=== PATIENT | female | born 1980 | race African-American/Black ===

== ENCOUNTER 2021-12-28 11:50 | Emergency (ER) | payer MEDICARE, BC ==
--- NOTE | 2021-12-28 13:07 | ED ---
Female Urogenital HPI - General Chief complaint: Vaginal Bleeding Stated complaint: Poss miscarriage Time Seen by Provider: 12/28/21 13:00 Source: patient Mode of arrival: wheelchair Limitations: no limitations - History of Present Illness Initial comments: Patient is a 41-year-old A2 female with a chief complaint of pelvic pain and vaginal bleeding 3 days. Patient reports the pelvic pain is bilateral and shoots down through her thighs. Patient also reports vaginal bleeding that began on 12/26/21. Patient reports she has went through a total of 28 pads since the vaginal bleeding began. She did notice some blood clots yesterday but vaginal bleeding has been very light today, light pink in color. Patient reports her last menstrual period was on 11/01/21. She does note that she could be having a miscarriage as she has a history of 2 miscarriages previously. Patient denies fever, chills, generalized weakness, headache, shortness of breath, chest pain, palpitations, dizziness, abdominal pain, nausea, vomiting, diarrhea, melanic stools, hematochezia, and dysuria. - Related Data Home Medications Medication Instructions Recorded Confirmed Acetaminophen Tab [Tylenol] 650 mg PO Q4H PRN 12/28/21 12/28/21 Ibuprofen [Motrin Ib] 400 mg PO Q8H PRN 12/28/21 12/28/21 Previous Rx's Medication Instructions Recorded HYDROcodone/APAP 10-325MG [[place] 1 tab PO Q6H PRN 3 Days #12 tab 12/28/21 10-325] Allergies Allergy/AdvReac Type Severity Reaction Status Date / Time latex Allergy Rash/Hives Verified 12/28/21 13:54 Review of Systems ROS Statement: Those systems with pertinent positive or pertinent negative responses have been documented in the HPI. ROS Other: All systems not noted in ROS Statement are negative. Past Medical History Past Medical History: Hypertension Additional Past Medical History / Comment(s): anemia History of Any Multi-Drug Resistant Organisms: None Reported Past Surgical History: Section Past Psychological History: No Psychological Hx Reported Smoking Status: Vaper Past Alcohol Use History: None Reported Past Drug Use History: None Reported General Exam Limitations: no limitations General appearance: alert, in no apparent distress Head exam: Present: atraumatic, normocephalic, normal inspection Eye exam: Present: normal appearance, PERRL, EOMI. Absent: scleral icterus, conjunctival injection, periorbital swelling Neck exam: Present: normal inspection. Absent: tenderness, meningismus, lymphadenopathy Respiratory exam: Present: normal lung sounds bilaterally. Absent: respiratory distress, wheezes, rales, rhonchi, stridor Cardiovascular Exam: Present: regular rate, normal rhythm, normal heart sounds. Absent: systolic murmur, diastolic murmur, rubs, gallop, clicks GI/Abdominal exam: Present: soft, tenderness (pelvic region bilaterally ). Absent: distended, guarding, rebound, rigid Speculum exam: Present: other (Cervical os was visualized with very minimal bleeding) Back exam: Present: normal inspection, full ROM. Absent: tenderness, CVA tenderness (R), CVA tenderness (L) Neurological exam: Present: alert, oriented X3, CN II-XII intact Psychiatric exam: Present: normal affect, normal mood Skin exam: Present: warm, dry, intact, normal color. Absent: rash Course Vital Signs 12/28/21 12/28/21 12/28/21 12:39 18:08 20:39 Temperature 99.4 F 98.3 F Pulse Rate 97 93 83 Respiratory 18 18 15 Rate Blood Pressure 156/91 144/86 146/92 O2 Sat by Pulse 100 98 99 Oximetry Medical Decision Making - Medical Decision Making She is a 41-year-old female who presents with severe pelvic pain and vaginal bleeding 3 days. Thorough history and examination were performed. Urine hCG is negative. Urinalysis reveals 182 RBC. Hemoglobin is 7.4. On speculum exam there was very mild vaginal bleeding from the cervical os. Pelvic ultrasound reveals no evidence for ovarian torsion, or couple small follicles are seen within the ovaries, normal endometrial stripe, no pelvic free fluid. CT of the abdomen and pelvis without contrast reveals no evidence of acute intra-abdominal process. Repeat hemoglobin is 7.2 Patient given Dilaudid for pain. Patient reports that the Dilaudid improved the pain moderately. Case discussed with Dr. Ramsay who is comfortable with outpatient evaluation and management of the pelvic pain and vaginal bleeding. Case discussed with patient. Patient reports that her hemoglobin is usually around 8. Patient will be discharged with short course of [place], strict return parameters, referral to Dr. Ramsay. He verbalizes understanding and is agreeable to plan. Return parameters discussed. Dr. Magallanes is my attending. - Lab Data Result diagrams: 12/28/21 18:07 12/28/21 13:42 Lab Results 12/28/21 12/28/21 12/28/21 Range/Units 13:37 13:42 13:42 WBC 8.6 (3.8-10.6) k/uL RBC 4.66 (4.30-5.90) m/uL Hgb 7.4 L (13.0-17.5) gm/dL Hct 28.6 L (39.0-53.0) % MCV 61.3 L (80.0-100.0) fL MCH 15.8 L (25.0-35.0) pg MCHC 25.8 L (31.0-37.0) g/dL RDW 22.2 H (11.5-15.5) % Plt Count 609 H (150-450) k/uL MPV 8.5 Neutrophils % 59 % Lymphocytes % 31 % Monocytes % 5 % Eosinophils % 3 % Basophils % 1 % Neutrophils # 5.0 (1.3-7.7) k/uL Lymphocytes # 2.7 (1.0-4.8) k/uL Monocytes # 0.5 (0-1.0) k/uL Eosinophils # 0.2 (0-0.7) k/uL Basophils # 0.1 (0-0.2) k/uL Differential Comment Manual Slide Review Performed Hypochromasia Marked Poikilocytosis Slight Anisocytosis Moderate Microcytosis Marked PT (9.0-12.0) sec INR (<1.2) APTT (22.0-30.0) sec Sodium 137 (137-145) mmol/L Potassium 4.5 (3.5-5.1) mmol/L Chloride 107 (98-107) mmol/L Carbon Dioxide 24 (22-30) mmol/L Anion Gap 6 mmol/L BUN 11 (9-20) mg/dL Creatinine 0.83 (0.66-1.25) mg/dL Est GFR (CKD-EPI)AfAm >90 (>60 ml/min/1.73 sqM) Est GFR (CKD-EPI)NonAf >90 (>60 ml/min/1.73 sqM) Glucose 94 (74-99) mg/dL Calcium 10.8 H (8.4-10.2) mg/dL Total Bilirubin 0.4 (0.2-1.3) mg/dL AST 22 (17-59) U/L ALT 14 (4-49) U/L Alkaline Phosphatase 85 (38-126) U/L Total Protein 7.7 (6.3-8.2) g/dL Albumin 4.3 (3.5-5.0) g/dL Urine Color Urine Appearance (Clear) Urine pH (5.0-8.0) Ur Specific [place] (1.001-1.035) Urine Protein (Negative) Urine Glucose (UA) (Negative) Urine Ketones (Negative) Urine Blood (Negative) Urine Nitrite (Negative) Urine Bilirubin (Negative) Urine Urobilinogen (<2.0) mg/dL Ur Leukocyte Esterase (Negative) Urine RBC (0-5) /hpf Urine WBC (0-5) /hpf Urine WBC Clumps (None) /hpf Urine HCG, Qual Blood Type O Positive Blood Type Recheck No Previous Record Bld Type Recheck Status [facility] ONLY 12/28/21 12/28/21 12/28/21 Range/Units 13:42 13:42 13:42 WBC (3.8-10.6) k/uL RBC (4.30-5.90) m/uL Hgb (13.0-17.5) gm/dL Hct (39.0-53.0) % MCV (80.0-100.0) fL MCH (25.0-35.0) pg MCHC (31.0-37.0) g/dL RDW (11.5-15.5) % Plt Count (150-450) k/uL MPV Neutrophils % % Lymphocytes % % Monocytes % % Eosinophils % % Basophils % % Neutrophils # (1.3-7.7) k/uL Lymphocytes # (1.0-4.8) k/uL Monocytes # (0-1.0) k/uL Eosinophils # (0-0.7) k/uL Basophils # (0-0.2) k/uL Differential Comment Manual Slide Review Hypochromasia Poikilocytosis Anisocytosis Microcytosis PT 9.8 (9.0-12.0) sec INR 0.9 (<1.2) APTT 21.1 L (22.0-30.0) sec Sodium (137-145) mmol/L Potassium (3.5-5.1) mmol/L Chloride (98-107) mmol/L Carbon Dioxide (22-30) mmol/L Anion Gap mmol/L BUN (9-20) mg/dL Creatinine (0.66-1.25) mg/dL Est GFR (CKD-EPI)AfAm (>60 ml/min/1.73 sqM) Est GFR (CKD-EPI)NonAf (>60 ml/min/1.73 sqM) Glucose (74-99) mg/dL Calcium (8.4-10.2) mg/dL Total Bilirubin (0.2-1.3) mg/dL AST (17-59) U/L ALT (4-49) U/L Alkaline Phosphatase (38-126) U/L Total Protein (6.3-8.2) g/dL Albumin (3.5-5.0) g/dL Urine Color Red Urine Appearance Turbid (Clear) Urine pH 7.5 (5.0-8.0) Ur Specific [place] >1.050 H (1.001-1.035) Urine Protein 2+ H (Negative) Urine Glucose (UA) Negative (Negative) Urine Ketones Negative (Negative) Urine Blood Large H (Negative) Urine Nitrite Negative (Negative) Urine Bilirubin Negative (Negative) Urine Urobilinogen <2.0 (<2.0) mg/dL Ur Leukocyte Esterase Small H (Negative) Urine RBC >182 H (0-5) /hpf Urine WBC 11 H (0-5) /hpf Urine WBC Clumps Moderate H (None) /hpf Urine HCG, Qual Not Detected Blood Type Blood Type Recheck Bld Type Recheck Status 12/28/21 Range/Units 18:07 WBC 11.8 H (3.8-10.6) k/uL RBC 4.54 (4.30-5.90) m/uL Hgb 7.2 L (13.0-17.5) gm/dL Hct 28.0 L (39.0-53.0) % MCV 61.6 L (80.0-100.0) fL MCH 15.9 L (25.0-35.0) pg MCHC 25.8 L (31.0-37.0) g/dL RDW 21.6 H (11.5-15.5) % Plt Count 554 H (150-450) k/uL MPV 8.1 Neutrophils % 59 % Lymphocytes % 33 % Monocytes % 4 % Eosinophils % 2 % Basophils % 1 % Neutrophils # 7.0 (1.3-7.7) k/uL Lymphocytes # 3.9 (1.0-4.8) k/uL Monocytes # 0.5 (0-1.0) k/uL Eosinophils # 0.3 (0-0.7) k/uL Basophils # 0.1 (0-0.2) k/uL Differential Comment Manual Slide Review Hypochromasia Marked Poikilocytosis Slight Anisocytosis Moderate Microcytosis Marked PT (9.0-12.0) sec INR (<1.2) APTT (22.0-30.0) sec Sodium (137-145) mmol/L Potassium (3.5-5.1) mmol/L Chloride (98-107) mmol/L Carbon Dioxide (22-30) mmol/L Anion Gap mmol/L BUN (9-20) mg/dL Creatinine (0.66-1.25) mg/dL Est GFR (CKD-EPI)AfAm (>60 ml/min/1.73 sqM) Est GFR (CKD-EPI)NonAf (>60 ml/min/1.73 sqM) Glucose (74-99) mg/dL Calcium (8.4-10.2) mg/dL Total Bilirubin (0.2-1.3) mg/dL AST (17-59) U/L ALT (4-49) U/L Alkaline Phosphatase (38-126) U/L Total Protein (6.3-8.2) g/dL Albumin (3.5-5.0) g/dL Urine Color Urine Appearance (Clear) Urine pH (5.0-8.0) Ur Specific [place] (1.001-1.035) Urine Protein (Negative) Urine Glucose (UA) (Negative) Urine Ketones (Negative) Urine Blood (Negative) Urine Nitrite (Negative) Urine Bilirubin (Negative) Urine Urobilinogen (<2.0) mg/dL Ur Leukocyte Esterase (Negative) Urine RBC (0-5) /hpf Urine WBC (0-5) /hpf Urine WBC Clumps (None) /hpf Urine HCG, Qual Blood Type Blood Type Recheck Bld Type Recheck Status Disposition Clinical Impression: Dysfunctional uterine bleeding Disposition: HOME SELF-CARE Condition: Good Instructions (If sedation given, give patient instructions): Dysfunctional Uterine Bleeding (ED) Additional Instructions: Follow-up with retail sales associate in 1-2 days. Take [place] as prescribed for pain. Return to the emergency department if you experience new, concerning, or wo rsening symptoms. Prescriptions: HYDROcodone/APAP 10-325MG [[place] 10-325] 1 tab PO Q6H PRN 3 Days #12 tab PRN Reason: pain Is patient prescribed a controlled substance at d/c from ED?: Yes When asked, does pt state using other controlled substances?: Yes If prescribed controlled substance>3 days was MAPS reviewed?: Prescribed <3 Days Referrals: Nonstaff,Physician [REFERRING] - 1-2 days Heike Ramsay DO [Doctor of Osteopathic Medicine] - 1-2 days Time of Disposition: 20:10
[2021-12-28] MEDS ORDERED: ACETAMINOPHEN TAB 500 MG TAB PO STA (13:09)
[2021-12-28 14:10] LABS: ALT 14 U/L (4-49); AST 22 U/L (17-59); African American GFR (CKD) >90 (>60 ml/min/1.73 sqM); Albumin 4.3 g/dL (3.5-5.0); Alkaline Phosphatase 85 U/L (38-126); Anion Gap 6 mmol/L; Blood Urea Nitrogen 11 mg/dL (9-20); Calcium 10.8 mg/dL (8.4-10.2); Carbon Dioxide 24 mmol/L (22-30); Chloride 107 mmol/L (98-107); Glucose 94 mg/dL (74-99); Non-African American GFR(CKD) >90 (>60 ml/min/1.73 sqM); Potassium 4.5 mmol/L (3.5-5.1); Sodium 137 mmol/L (137-145); Total Bilirubin 0.4 mg/dL (0.2-1.3); Total Protein 7.7 g/dL (6.3-8.2)
[2021-12-28 14:21] LABS: INR 0.9 (<1.2); Prothrombin Time 9.8 sec (9.0-12.0)
[2021-12-28 14:27] LABS: Appearance,Urine Turbid (Clear); Bilirubin,Urine Negative (Negative); Blood,Urine Large (Negative); Color,Urine Red; Glucose,Urine (UA) Negative (Negative); Ketones,Urine Negative (Negative); Leukocyte Esterase,Urine Small (Negative); Nitrite,Urine Negative (Negative); PH, Urine 7.5 (5.0-8.0); Protein,Urine 2+ (Negative); RBC,Urine >182 /hpf (0-5); Urobilinogen,Urine <2.0 mg/dL (<2.0); WBC,Urine 11 /hpf (0-5)
[2021-12-28 14:30] LABS: Anisocytosis Moderate; Basophils # (A) 0.1 k/uL (0-0.2); Basophils % (A) 1 %; Eosinophils # (A) 0.2 k/uL (0-0.7); Eosinophils % (A) 3 %; HCT 28.6 % (39.0-53.0); HGB 7.4 gm/dL (13.0-17.5); Hypochromasia Marked; Lymphocytes # (A) 2.7 k/uL (1.0-4.8); Lymphocytes % (A) 31 %; MCH 15.8 pg (25.0-35.0); MCHC 25.8 g/dL (31.0-37.0); MCV 61.3 fL (80.0-100.0); Mean Platelet Volume 8.5; Microcytosis Marked; Monocytes # (A) 0.5 k/uL (0-1.0); Monocytes % (A) 5 %; Neutrophils % (A) 59 %; Platelet Count 609 k/uL (150-450); Poikilocytosis Slight; RBC 4.66 m/uL (4.30-5.90); RDW 22.2 % (11.5-15.5); WBC 8.6 k/uL (3.8-10.6)
[2021-12-28 14:32] LABS: Specific Gravity,Urine >1.050 (1.001-1.035)
[2021-12-28 14:39] LABS: Partial Thromboplastin Time 21.1 sec (22.0-30.0)
[2021-12-28] MEDS ORDERED: HYDROmorphone 1 MG/ML 1 ML SYRINGE IVP STA (14:43)
--- NOTE | 2021-12-28 16:02 | US ---
EXAMINATION TYPE: US pelvis complete transvag plus Dopplers DATE OF EXAM: 12/28/2021 COMPARISON: NONE CLINICAL HISTORY: 41-year-old male pelvis pain, heavy bleeding with clots for 2 days. Spotting now. N egative [facility] TECHNIQUE: Transvaginal (TV) and Transabdominal (TA) . Transabdominal sonographic images of the pel vis were acquired. Transvaginal sonographic images were medically necessary to better assess the fol lowing anatomy: ovaries. Color Doppler and spectral waveform analysis ovarian arteries and veins. Date of LMP: 10/31 FINDINGS: EXAM MEASUREMENTS: Uterus: 7.7 x 4.1 x 5.1 cm Endometrial Stripe: 0.6 cm Right Ovary: 3.2 x 1.6 x 1.8 cm for a volume of 5.1 mL. Left Ovary: 3.5 x 1.1 x 2.2 cm for a volume of 4.3 mL 1. Uterus: Anteverted with Nabothian cysts measuring up to 9 mm. 2. Endometrium: appears wnl 3. Right Ovary: Couple follicles measuring up to 7 mm. 4. Left Ovary: follicles noted Spectral, color and waveform doppler imaging shows good arterial and venous flow within the ovaries ; there is no evidence for ovarian torsion. 5. Bilateral Adnexa: appears wnl 6. Posterior cul-de-sac: wnl IMPRESSION: 1. No sonographic evidence for ovarian torsion. 2. A couple small follicles seen within the ovaries. 3. Normal endometrial stripe. No pelvic free fluid.
--- NOTE | 2021-12-28 17:28 | CT ---
EXAMINATION TYPE: CT abdomen pelvis wo con CT DLP: 1158.4 mGycm, Automated exposure control for dose reduction was used. DATE OF EXAM: 12/28/2021 4:47 PM COMPARISON: None. CLINICAL INDICATION:, 41 years old with history of pain; Pelvic pain and vaginal bleeding. TECHNIQUE: Standard CT of the abdomen and pelvis without IV or oral contrast. Lack of IV or oral co ntrast limits evaluation of solid and hollow organ viscera. Coronal and sagittal reformats were perfo rmed. FINDINGS: LOWER CHEST: Unremarkable ABDOMEN LIVER: Unremarkable GALLBLADDER AND BILE DUCTS: Unremarkable. PANCREAS: Unremarkable. SPLEEN: Unremarkable. ADRENAL GLANDS: Unremarkable. KIDNEYS AND URETERS: No evidence of hydronephrosis or renal calculus. The ureters are unremarkable. PELVIS BLADDER: Unremarkable REPRODUCTIVE: Unremarkable. ABDOMEN & PELVIS STOMACH AND BOWEL: No evidence of bowel obstruction. The appendix is visualized and within normal jc its. PERITONEUM: No evidence of pneumoperitoneum or free fluid. VASCULATURE: No evidence of aortic aneurysm. MUSCULOSKELETAL: No acute osseous abnormalities LYMPH NODES: No gross evidence for lymphadenopathy. SOFT TISSUE/ABDOMINAL WALL: Fat filled umbilical hernia measuring 1.1 cm at the neck. IMPRESSION: 1. No evidence of acute intra-abdominal process.
[2021-12-28] MEDS ORDERED: HYDROmorphone 0.5 MG/0.5 ML SYRINGE IVP STA (17:38)
[2021-12-28 18:08] VITALS: TEMP 98.3
[2021-12-28 18:17] LABS: Anisocytosis Moderate; Basophils # (A) 0.1 k/uL (0-0.2); Basophils % (A) 1 %; Eosinophils # (A) 0.3 k/uL (0-0.7); Eosinophils % (A) 2 %; HGB 7.2 gm/dL (13.0-17.5); Hypochromasia Marked; Lymphocytes # (A) 3.9 k/uL (1.0-4.8); Lymphocytes % (A) 33 %; MCH 15.9 pg (25.0-35.0); MCHC 25.8 g/dL (31.0-37.0); MCV 61.6 fL (80.0-100.0); Mean Platelet Volume 8.1; Microcytosis Marked; Monocytes # (A) 0.5 k/uL (0-1.0); Monocytes % (A) 4 %; Neutrophils % (A) 59 %; Platelet Count 554 k/uL (150-450); Poikilocytosis Slight; RBC 4.54 m/uL (4.30-5.90); RDW 21.6 % (11.5-15.5); WBC 11.8 k/uL (3.8-10.6)
[2021-12-28] MEDS ORDERED: HYDROcodone/APAP 5-325MG 1 EACH TAB PO STA (20:15)
[2021-12-28 20:39] VITALS: BP 146/92; PULSE 83; RESP 15
== END 2021-12-28 20:40 | disposition home or self-care (01) ==
LOC: EDSEX 11:50 → EC 11:50
DX: N93.8 Other specified abnormal uterine and vaginal bleeding (principal); I10 Essential (primary) hypertension; F17.290 Nicotine dependence, other tobacco product, uncomplicated
CPT/HCPCS: 36415; 86900; 86901; 80053; 85025; 85610; 85730; 81001; 81025; 87086; 93975; 76856; 76830; 74176; 99284; 96374; 96376; J1170 ×2

== ENCOUNTER 2022-06-07 16:10 | Emergency (ER) | payer OTHER ==
[2022-06-07 16:38] VITALS: RESP 18; TEMP 98.3
[2022-06-07] MEDS ORDERED: LIDOCAINE/EPINEPHR/TETRACAINE 5 ML BOTTLE TOPICAL ONE (16:51)
[2022-06-07] MEDS ORDERED: HYDROmorphone 1 MG/ML 1 ML SYRINGE IVP STA (16:51)
[2022-06-07] MEDS ORDERED: LIDOCAINE 1% INJ 10MG/ML (5 ML VIAL-PF) SQ ONE (16:51)
--- NOTE | 2022-06-07 16:53 | ED ---
Skin/Abscess/FB HPI - General Chief complaint: Skin/Abscess/Foreign Body Stated complaint: Fever, sore on back Time Seen by Provider: 06/07/22 16:48 Source: patient, RN notes reviewed, old records reviewed Mode of arrival: ambulatory Limitations: no limitations - History of Present Illness Initial comments: 41-year-old female presents to the emergency room with an abscess to her right buttock for the past 3 days. She states there is no active drainage or bleeding. No previous history of abscesses. MD complaint: abscess/boil -: days(s) (3) Location: buttocks (right gluteal cleft) Severity scale (1-10): 10 Quality: constant Consistency: constant Improves with: none Worsens with: movement, other (palpation) Context: none Associated symptoms: denies other symptoms Treatments Prior to Arrival: none - Related Data Home Medications Medication Instructions Recorded Confirmed Acetaminophen Tab [Tylenol] 650 mg PO Q4H PRN 12/28/21 12/28/21 Ibuprofen [Motrin Ib] 400 mg PO Q8H PRN 12/28/21 12/28/21 Previous Rx's Medication Instructions Recorded HYDROcodone/APAP 10-325MG [[place] 1 tab PO Q6H PRN 3 Days #12 tab 12/28/21 10-325] Cephalexin [Keflex] 500 mg PO Q6HR 7 Days #28 cap 06/07/22 Ibuprofen [Motrin] 600 mg PO Q8HR PRN #30 tab 06/07/22 Allergies Allergy/AdvReac Type Severity Reaction Status Date / Time latex Allergy Rash/Hives Verified 06/07/22 16:38 Review of Systems ROS Statement: Those systems with pertinent positive or pertinent negative responses have been documented in the HPI. ROS Other: All systems not noted in ROS Statement are negative. Past Medical History Past Medical History: Hypertension Additional Past Medical History / Comment(s): anemia History of Any Multi-Drug Resistant Organisms: None Reported Past Surgical History: Section Past Psychological History: No Psychological Hx Reported Smoking Status: Vaper Past Alcohol Use History: None Reported Past Drug Use History: None Reported General Exam Limitations: no limitations General appearance: alert Respiratory exam: Absent: respiratory distress, accessory muscle use Cardiovascular Exam: Present: tachycardia GI/Abdominal exam: Present: soft Rectal exam: Present: other (right gluteal abscess approximately 5 cm, fluctuant with excoriated skin). Absent: mass Extremities exam: Present: full ROM, normal capillary refill. Absent: tenderness, pedal edema Neurological exam: Present: alert, oriented X3 Psychiatric exam: Present: normal affect, normal mood Skin exam: Present: warm, dry. Absent: cyanosis, diaphoretic Course Vital Signs 06/07/22 16:31 Temperature 98.3 F Pulse Rate 104 H Respiratory 18 Rate Blood Pressure 164/88 O2 Sat by Pulse 99 Oximetry Procedures - Incision & Drainage Consent Obtained: verbal consent Site: buttock (right) Anesthetic Used: lidocaine 1% I&D Cleaning Method: Betadine Sterile Field Used?: Yes Scalpel Used: #11 I&D Drainage Obtained: Pus, Blood Culture Obtained?: Yes Patient Tolerated Procedure: well Medical Decision Making - Medical Decision Making LET and lidocaine used to anesthetize skin. Abscess was opened and drained with an 11 blade scalpel after cleansed with Betadine solution. Culture was obtained. Patient was prescribed Keflex and Motrin , directed to follow up with her primary care doctor next week. Soak in a sitz bath for 15-20 minutes, 3 times a day for as long as you have pain and tenderness. Return to the emergency room with any new or concerning symptoms. - Lab Data Result diagrams: 06/07/22 16:56 06/07/22 16:56 Lab Results 06/07/22 06/07/22 Range/Units 16:56 16:56 WBC 15.0 H (3.8-10.6) k/uL RBC 4.97 (3.80-5.40) m/uL Hgb 7.7 L (11.4-16.0) gm/dL Hct 29.8 L (34.0-46.0) % MCV 59.9 L (80.0-100.0) fL MCH 15.5 L (25.0-35.0) pg MCHC 25.9 L (31.0-37.0) g/dL RDW 21.5 H (11.5-15.5) % Plt Count 527 H (150-450) k/uL MPV 6.2 Neutrophils % 74 % Lymphocytes % 16 % Monocytes % 6 % Eosinophils % 2 % Basophils % 1 % Neutrophils # 11.1 H (1.3-7.7) k/uL Lymphocytes # 2.4 (1.0-4.8) k/uL Monocytes # 0.9 (0-1.0) k/uL Eosinophils # 0.3 (0-0.7) k/uL Basophils # 0.1 (0-0.2) k/uL Hypochromasia Marked Poikilocytosis Slight Anisocytosis Moderate Microcytosis Marked Sodium 136 L (137-145) mmol/L Potassium 4.6 (3.5-5.1) mmol/L Chloride 103 (98-107) mmol/L Carbon Dioxide 25 (22-30) mmol/L Anion Gap 8 mmol/L BUN 11 (7-17) mg/dL Creatinine 0.67 (0.52-1.04) mg/dL Est GFR (CKD-EPI)AfAm >90 (>60 ml/min/1.73 sqM) Est GFR (CKD-EPI)NonAf >90 (>60 ml/min/1.73 sqM) Glucose 96 (74-99) mg/dL Calcium 11.0 H (8.4-10.2) mg/dL Total Bilirubin 0.3 (0.2-1.3) mg/dL AST 24 (14-36) U/L ALT 15 (4-34) U/L Alkaline Phosphatase 121 (38-126) U/L Total Protein 7.8 (6.3-8.2) g/dL Albumin 4.4 (3.5-5.0) g/dL Disposition Clinical Impression: Abscess, gluteal, right Disposition: HOME SELF-CARE Condition: Good Instructions (If sedation given, give patient instructions): Abscess (ED), Abscess Incision and Drainage (DC) Additional Instructions: Take Keflex as directed and follow up with your primary care doctor next week. Soak in a sitz bath for 15-20 minutes, 3 times a day for as long as you have pain and tenderness. Return to the emergency room with any new or concerning symptoms. Prescriptions: Cephalexin [Keflex] 500 mg PO Q6HR 7 Days #28 cap Ibuprofen [Motrin] 600 mg PO Q8HR PRN #30 tab PRN Reason: Pain Is patient prescribed a controlled substance at d/c from ED?: No Referrals: None,Stated [Primary Care Provider] - 1-2 days Time of Disposition: 18:00
[2022-06-07 17:31] LABS: ALT 15 U/L (4-34); AST 24 U/L (14-36); African American GFR (CKD) >90 (>60 ml/min/1.73 sqM); Albumin 4.4 g/dL (3.5-5.0); Alkaline Phosphatase 121 U/L (38-126); Anion Gap 8 mmol/L; Blood Urea Nitrogen 11 mg/dL (7-17); Carbon Dioxide 25 mmol/L (22-30); Chloride 103 mmol/L (98-107); Glucose 96 mg/dL (74-99); Non-African American GFR(CKD) >90 (>60 ml/min/1.73 sqM); Potassium 4.6 mmol/L (3.5-5.1); Sodium 136 mmol/L (137-145); Total Bilirubin 0.3 mg/dL (0.2-1.3); Total Protein 7.8 g/dL (6.3-8.2)
[2022-06-07 17:48] LABS: Anisocytosis Moderate; Basophils # (A) 0.1 k/uL (0-0.2); Basophils % (A) 1 %; Eosinophils # (A) 0.3 k/uL (0-0.7); Eosinophils % (A) 2 %; HCT 29.8 % (34.0-46.0); HGB 7.7 gm/dL (11.4-16.0); Hypochromasia Marked; Lymphocytes # (A) 2.4 k/uL (1.0-4.8); Lymphocytes % (A) 16 %; MCH 15.5 pg (25.0-35.0); MCHC 25.9 g/dL (31.0-37.0); MCV 59.9 fL (80.0-100.0); Mean Platelet Volume 6.2; Microcytosis Marked; Monocytes # (A) 0.9 k/uL (0-1.0); Monocytes % (A) 6 %; Neutrophils # (A) 11.1 k/uL (1.3-7.7); Neutrophils % (A) 74 %; Platelet Count 527 k/uL (150-450); Poikilocytosis Slight; RBC 4.97 m/uL (3.80-5.40); RDW 21.5 % (11.5-15.5)
[2022-06-07 18:42] VITALS: BP 166/88; PULSE 92
== END 2022-06-07 18:41 | disposition home or self-care (01) ==
LOC: EC 16:10
DX: L02.31 Cutaneous abscess of buttock (principal); I10 Essential (primary) hypertension; F17.209 Nicotine dependence, unspecified, with unspecified nicotine-induced disorders; Z91.040 Latex allergy status
CPT/HCPCS: 36415; 80053; 85025; 87040; 99283; 10060; 96374; J2001; J1170

== ENCOUNTER → 2022-07-27 | Outpatient (CLI) | payer OTHER ==
[2022-07-27 17:00] LABS: Ionized Calcium 5.9 mg/dL (4.5-5.3)
[2022-07-27 23:51] LABS: Basophils # (A) 0.11 X 10*3/uL (0.00-0.10); Eosinophils # (A) 0.28 X 10*3/uL (0.04-0.35); Eosinophils % (A) 2.4 %; HCT 31.4 % (37.2-46.3); HGB 8.2 g/dL (12.0-15.0); Immature Grans, Automated 0.3 %; Lymphocytes # (A) 3.41 X 10*3/uL (0.90-5.00); Lymphocytes % (A) 29.5 %; MCH 16.9 pg (27.0-32.0); MCHC 26.1 g/dL (32.0-37.0); MCV 64.9 fL (80.0-97.0); Monocytes # (A) 1.01 X 10*3/uL (0.20-1.00); Monocytes % (A) 8.7 %; NRBC Per 100 WBC 0 /100 WBCS (0.0-0.0); Neutrophils % (A) 58.1 %; Platelet Count 540 X 10*3/uL (140-440); RBC 4.84 X 10*6/uL (4.10-5.20); RDW 31.3 % (11.5-14.5); WBC 11.55 X 10*3/uL (4.50-10.00)
[2022-07-27 23:52] LABS: Anisocytosis (M) 3+; Elliptocytes 2+; Hypochromasia (M) 2+; Microcytosis (M) 3+
[2022-07-28] LABS: % Iron Saturation 60.5 (12.00-45.00); Ferritin 21.3 ng/mL (10.0-291.0)
== END | disposition home or self-care (01) ==
LOC: LABWHC1 16:32
PROVIDERS: ATTEND Internal Medicine
DX: E83.52 Hypercalcemia (principal)
CPT/HCPCS: 36415; 82306; 82310; 82330; 82652; 82728; 83540; 83550; 83970; 85025

== ENCOUNTER → 2022-07-27 | Outpatient (CLI) | payer OTHER ==
--- NOTE | 2022-07-28 08:09 | XR ---
EXAMINATION TYPE: XR chest 2V DATE OF EXAM: 07/27/2022 COMPARISON: None HISTORY: 42-year-old female E83.52, hypercalcemia, abnormal labs. TECHNIQUE: Frontal and lateral views FINDINGS: The cardiomediastinal silhouette, aorta, and pulmonary vasculature are within normal limits. Hazy cyrus g densities related to overlying soft tissue. Otherwise, lungs and pleural spaces are clear. IMPRESSION: No acute cardiopulmonary process.
== END | disposition home or self-care (01) ==
LOC: RADXRMAIN 16:54
PROVIDERS: ATTEND Internal Medicine
DX: E83.52 Hypercalcemia (principal)
CPT/HCPCS: 71046

== ENCOUNTER 2022-07-28 21:21 | Observation (INO) | payer OTHER ==
[2022-07-28 22:17] VITALS: TEMP 98.2
[2022-07-28 22:57] LABS: ALT 17 U/L (4-34); AST 25 U/L (14-36); African American GFR (CKD) >90 (>60 ml/min/1.73 sqM); Alkaline Phosphatase 110 U/L (38-126); Amylase 57 U/L (30-110); Anion Gap 11 mmol/L; Blood Urea Nitrogen 8 mg/dL (7-17); Calcium 10.7 mg/dL (8.4-10.2); Carbon Dioxide 23 mmol/L (22-30); Chloride 106 mmol/L (98-107); Glucose 100 mg/dL (74-99); Lipase 77 U/L (23-300); Non-African American GFR(CKD) >90 (>60 ml/min/1.73 sqM); Potassium 3.9 mmol/L (3.5-5.1); Sodium 140 mmol/L (137-145); Total Bilirubin 0.3 mg/dL (0.2-1.3); Total Protein 6.9 g/dL (6.3-8.2)
[2022-07-28 23:03] LABS: Anisocytosis Marked; Basophils # (A) 0.1 k/uL (0-0.2); Basophils % (A) 1 %; Eosinophils # (A) 0.4 k/uL (0-0.7); Eosinophils % (A) 3 %; HCT 32.8 % (34.0-46.0); HGB 8.8 gm/dL (11.4-16.0); Hypochromasia Marked; Lymphocytes # (A) 3.3 k/uL (1.0-4.8); Lymphocytes % (A) 28 %; MCH 17.7 pg (25.0-35.0); MCHC 26.9 g/dL (31.0-37.0); Mean Platelet Volume 6.6; Microcytosis Marked; Monocytes # (A) 0.6 k/uL (0-1.0); Monocytes % (A) 5 %; Neutrophils # (A) 7.3 k/uL (1.3-7.7); Neutrophils % (A) 61 %; Platelet Count 480 k/uL (150-450); Poikilocytosis Slight; RBC 4.96 m/uL (3.80-5.40); WBC 11.9 k/uL (3.8-10.6)
[2022-07-28 23:06] LABS: RDW 27.7 % (11.5-15.5)
[2022-07-28] MEDS ORDERED: SODIUM CHLORIDE 0.9% 1,000 ML IV STA (23:47)
--- NOTE | 2022-07-28 23:47 | ED ---
Recheck HPI - General Chief Complaint: Abdominal Pain Stated Complaint: labs, high calcium Source: patient, RN notes reviewed, old records reviewed Mode of arrival: wheelchair Limitations: no limitations - History of Present Illness Initial Comments: This is a 42-year-old female for generalized body aches and pains. Patient has had multiple days to months of body aches and pains and his been found to have an elevated calcium level calcium levels continued to remain elevated and is elevated here in the emergency department today. Patient presents today for abnormal outpatient testing MD Complaint: abnormal lab (Elevated calcium) -: month(s) Returns Today for: Called Because of Abnormal Lab/Test Symptoms Since Prior Visit: no new symptoms Context: called for abnormal lab result Associated Symptoms: none Treatments Prior to Arrival: other (0) - Related Data Home Medications Medication Instructions Recorded Confirmed Acetaminophen Tab [Tylenol] 650 mg PO Q4H PRN 12/28/21 12/28/21 Ibuprofen [Motrin Ib] 400 mg PO Q8H PRN 12/28/21 12/28/21 Previous Rx's Medication Instructions Recorded HYDROcodone/APAP 10-325MG [[place] 1 tab PO Q6H PRN 3 Days #12 tab 12/28/21 10-325] Cephalexin [Keflex] 500 mg PO Q6HR 7 Days #28 cap 06/07/22 Ibuprofen [Motrin] 600 mg PO Q8HR PRN #30 tab 06/07/22 Allergies Allergy/AdvReac Type Severity Reaction Status Date / Time latex Allergy Rash/Hives Verified 06/07/22 16:38 Review of Systems ROS Statement: Those systems with pertinent positive or pertinent negative responses have been documented in the HPI. ROS Other: All systems not noted in ROS Statement are negative. Past Medical History Past Medical History: Hypertension Additional Past Medical History / Comment(s): anemia History of Any Multi-Drug Resistant Organisms: None Reported Past Surgical History: Section Past Psychological History: No Psychological Hx Reported Smoking Status: Vaper Past Alcohol Use History: None Reported Past Drug Use History: None Reported General Exam Limitations: no limitations General appearance: alert, in no apparent distress Head exam: Present: atraumatic, normocephalic, normal inspection Eye exam: Present: normal appearance, PERRL, EOMI. Absent: scleral icterus, conjunctival injection, periorbital swelling ENT exam: Present: normal exam, mucous membranes moist Neck exam: Present: normal inspection. Absent: tenderness, meningismus, lymphadenopathy Respiratory exam: Present: normal lung sounds bilaterally. Absent: respiratory distress, wheezes, rales, rhonchi, stridor Cardiovascular Exam: Present: regular rate, normal rhythm, normal heart sounds. Absent: systolic murmur, diastolic murmur, rubs, gallop, clicks GI/Abdominal exam: Present: soft, normal bowel sounds. Absent: distended, tenderness, guarding, rebound, rigid Extremities exam: Present: normal inspection, full ROM, normal capillary refill. Absent: tenderness, pedal edema, joint swelling, calf tenderness Back exam: Present: normal inspection Neurological exam: Present: alert, oriented X3, CN II-XII intact Psychiatric exam: Present: normal affect, normal mood Skin exam: Present: warm, dry, intact, normal color. Absent: rash Course Vital Signs 07/28/22 22:12 Temperature 98.2 F Pulse Rate 94 Respiratory 16 Rate Blood Pressure 156/79 O2 Sat by Pulse 98 Oximetry - Reevaluation(s) Reevaluation #1: 07/29/22 00:46 Records reviewed Reevaluation #2: 07/29/22 00:46 Patient informed results and questions answered Reevaluation #3: 07/29/22 00:46 Symptoms improved - Consultations Consultation #1: Spoke with sound who agrees to admit this patient Medical Decision Making - Medical Decision Making 42 female will admit for elevated calcium levels. Patient will be admitted for nephrology to evaluate, further evaluation management - Lab Data Result diagrams: 07/28/22 22:26 07/28/22 22:26 Lab Results 07/28/22 07/28/22 Range/Units 22:26 22:26 WBC 11.9 H (3.8-10.6) k/uL RBC 4.96 (3.80-5.40) m/uL Hgb 8.8 L (11.4-16.0) gm/dL Hct 32.8 L (34.0-46.0) % MCV 66.0 L (80.0-100.0) fL MCH 17.7 L (25.0-35.0) pg MCHC 26.9 L (31.0-37.0) g/dL RDW 27.7 H (11.5-15.5) % Plt Count 480 H (150-450) k/uL MPV 6.6 Neutrophils % 61 % Lymphocytes % 28 % Monocytes % 5 % Eosinophils % 3 % Basophils % 1 % Neutrophils # 7.3 (1.3-7.7) k/uL Lymphocytes # 3.3 (1.0-4.8) k/uL Monocytes # 0.6 (0-1.0) k/uL Eosinophils # 0.4 (0-0.7) k/uL Basophils # 0.1 (0-0.2) k/uL Manual Slide Review Performed Polychromasia Present Hypochromasia Marked Poikilocytosis Slight Anisocytosis Marked Microcytosis Marked Target Cells Present Ovalocytes Present Fragmented RBCs Present Sodium 140 (137-145) mmol/L Potassium 3.9 (3.5-5.1) mmol/L Chloride 106 (98-107) mmol/L Carbon Dioxide 23 (22-30) mmol/L Anion Gap 11 mmol/L BUN 8 (7-17) mg/dL Creatinine 0.66 (0.52-1.04) mg/dL Est GFR (CKD-EPI)AfAm >90 (>60 ml/min/1.73 sqM) Est GFR (CKD-EPI)NonAf >90 (>60 ml/min/1.73 sqM) Glucose 100 H (74-99) mg/dL Calcium 10.7 H (8.4-10.2) mg/dL Total Bilirubin 0.3 (0.2-1.3) mg/dL AST 25 (14-36) U/L ALT 17 (4-34) U/L Alkaline Phosphatase 110 (38-126) U/L Total Protein 6.9 (6.3-8.2) g/dL Albumin 4.0 (3.5-5.0) g/dL Amylase 57 (30-110) U/L Lipase 77 (23-300) U/L Disposition Clinical Impression: Myalgia, Hypercalcemia Disposition: ADMITTED IP TO THIS HOSP Condition: Fair Is patient prescribed a controlled substance at d/c from ED?: No Referrals: Robe Peterson MD [Primary Care Provider] - 1-2 days Time of Disposition: 00:45
[2022-07-29 00:24] LABS: Polychromasia Present
[2022-07-29 00:27] LABS: Ovalocytes Present; RBC Fragments Present; Target Cells Present
[2022-07-29] MEDS ORDERED: MORPHINE SULFATE 4 MG/ML SYRINGE IV PRN (00:43)
[2022-07-29] MEDS ORDERED: NALOXONE 0.4 MG/ML 1 ML VIAL IV PRN (00:43)
[2022-07-29] MEDS ORDERED: HYDROmorphone 1 MG/ML 1 ML SYRINGE IVP STA (00:43)
[2022-07-29] MEDS: SODIUM CHLORIDE 0.9% 1,000 ML IV SCH ×4 (01:08→09:49)
[2022-07-29] MEDS: ONDANSETRON 4 MG/2 ML VIAL IVP PRN ×2 (01:08→08:07)
[2022-07-29 01:58] LABS: Ionized Calcium 5.9 mg/dL (4.5-5.3)
--- NOTE | 2022-07-29 03:31 | P.HPIM ---
History of Present Illness H&P Date: 07/29/22 Chief Complaint: Abnormal labs 42-year-old female with hypertension, fibromyalgia Patient comes into the hospital for evaluation upon recommendation of her primary care physician due to abnormal labs. She's been following up with her primary care doctor over the past week or so. Not much improvement has been made with her calcium level, her primary care doctor has stopped hydrochlorothiazide thinking hypercalcemia could be side effect of this medication however not much improvement has been achieved. Upon rechecking her calcium today levels came up high and she received a call from her primary care doctor recommending that she goes to the hospital for evaluation. Otherwise patient denies any confusion or changes in her mental status or behavior. Denies any changes in her bowel or urinary habits. She does report some diffuse bony aches but denies any abdominal pain chest pain trouble breathing. Blood work in the ED did reveal microcytic anemia and mildly elevated calcium. Patient does admit to heavy periods with long history of iron deficiency anemia she is currently on ferrous sulfate. Otherwise denies any GI bleeding Patient does admit to sleeping nicotine but denies any other illicit drugs or alcohol Review of Systems Pertinent positives as noted in HPI. All other systems were reviewed and are negative Past Medical History Past Medical History: Hypertension Additional Past Medical History / Comment(s): anemia History of Any Multi-Drug Resistant Organisms: None Reported Past Surgical History: Section Past Psychological History: No Psychological Hx Reported Smoking Status: Vaper Past Alcohol Use History: None Reported Past Drug Use History: None Reported - Past Family History Family Family Medical History: Coronary Artery Disease (CAD) Medications and Allergies Home Medications Medication Instructions Recorded Confirmed Type Acetaminophen Tab [Tylenol] 650 mg PO Q4H PRN 12/28/21 12/28/21 History HYDROcodone/APAP 10-325MG [[place] 1 tab PO Q6H PRN 3 Days #12 tab 12/28/21 Rx 10-325] Ibuprofen [Motrin Ib] 400 mg PO Q8H PRN 12/28/21 12/28/21 History Cephalexin [Keflex] 500 mg PO Q6HR 7 Days #28 cap 06/07/22 Rx Ibuprofen [Motrin] 600 mg PO Q8HR PRN #30 tab 06/07/22 Rx Allergies Allergy/AdvReac Type Severity Reaction Status Date / Time latex Allergy Rash/Hives Verified 06/07/22 16:38 Physical Exam Vitals: Vital Signs Temp Pulse Resp BP Pulse Ox 07/29/22 01:09 78 15 140/67 99 07/28/22 22:12 98.2 F 94 16 156/79 98 Intake and Output 07/28/22 07/28/22 07/29/22 14:59 22:59 06:59 Other: Weight 132.903 kg Constitutional: No acute distress, conversant, pleasant Eyes: Anicteric sclerae, moist conjunctiva, Pupils equal round reactive to light ENMT: NC/AT Oropharynx clear, no erythema, or exudates Neck: Supple no masses, or JVD No carotid bruits No thyromegaly Lungs: Clear to auscultation Clear to percussion Normal respiratory effort, no accessory muscle use Cardiovascular: Heart regular in rate and rhythm, No murmurs, gallops, or rubs No peripheral edema Abdominal: Soft Nontender, no guarding, rebound or rigidity Abdomen moving with respiration Normoactive bowel sounds No hepatomegaly, No splenomegaly No palpable mass No abdominal wall hernia noted Skin: Normal temperature, tone, texture, turgor No induration No subcutaneous nodules No rash, lesions No ulcers Extremities: No digital cyanosis No clubbing Pedal pulses intact and symmetrical Radial pulses intact and symmetrical No calf tenderness Psychiatric: Alert and oriented to person, place and time Appropriate affect fair judgement Neuro Muscles Strength 5/5 in all 4 extremities Sensation to light touch grossly present throughout Cranial nerves II-XII grossly intact No focal sensory deficits Lymphatics: no palpable cervical or supraclavicular , or inguinal lymph nodes Results CBC & Chem 7: 07/28/22 22:26 07/28/22 22:26 Labs: Abnormal Lab Results - Last 24 Hours (Table) 07/28/22 07/28/22 07/29/22 Range/Units 22:26 22:26 00:56 WBC 11.9 H (3.8-10.6) k/uL Hgb 8.8 L (11.4-16.0) gm/dL Hct 32.8 L (34.0-46.0) % MCV 66.0 L (80.0-100.0) fL MCH 17.7 L (25.0-35.0) pg MCHC 26.9 L (31.0-37.0) g/dL RDW 27.7 H (11.5-15.5) % Plt Count 480 H (150-450) k/uL Glucose 100 H (74-99) mg/dL Calcium 10.7 H (8.4-10.2) mg/dL Ionized Calcium Anuradha 5.9 H (4.5-5.3) mg/dL Assessment and Plan Assessment: Mild hypercalcemia Check vitamin D3, and vitamin D hydroxy 25 Check parathyroid hormone Initiate patient on normal saline for no treatment very since Follow-up calcium level in a.m. Continue to hold hydrochlorothiazide Hypertension Resume amlodipine Microcystic anemia Patient admits to heavy periods denies any GI bleeding Continue with iron supplementation Follow-up outpatient DVT prophylaxis heparin subcu 3 times a day Full code
[2022-07-29 07:21] LABS: African American GFR (CKD) 81 (>60 ml/min/1.73 sqM); Anion Gap 9 mmol/L; Blood Urea Nitrogen 11 mg/dL (7-17); Calcium 9.9 mg/dL (8.4-10.2); Carbon Dioxide 22 mmol/L (22-30); Chloride 108 mmol/L (98-107); Glucose 113 mg/dL (74-99); Magnesium 1.8 mg/dL (1.6-2.3); Non-African American GFR(CKD) 70 (>60 ml/min/1.73 sqM); Potassium 4.1 mmol/L (3.5-5.1); Sodium 139 mmol/L (137-145)
[2022-07-29] MEDS ORDERED: FERROUS SULFATE 325 MG TAB PO SCH (07:30)
[2022-07-29] MEDS ORDERED: PANTOPRAZOLE 40 MG TABLET PO SCH (07:30)
[2022-07-29] MEDS ORDERED: amLODIPine 5 MG TAB PO SCH (09:00)
--- NOTE | 2022-07-29 09:04 | P.DS ---
Providers Date of admission: 07/29/22 00:43 Expected date of discharge: 07/29/22 Attending physician: Andrey Baig MD Consults: 07/29/22 00:43 Consult Physician Routine Consulting Provider: Rudy Nguyễn Consult Reason/Comments: hyperCA Do you want consulting provider notified?: Yes Primary care physician: Robe Peterson MD Hospital Course: 42-year-old female with hypertension, fibromyalgia Patient comes into the hospital for evaluation upon recommendation of her primary care physician due to abnormal labs. She's been following up with her primary care doctor over the past week or so. Not much improvement has been made with her calcium level, her primary care doctor has stopped hydrochlorothiazide thinking hypercalcemia could be side effect of this medication however not much improvement has been achieved. Upon rechecking her calcium today levels came up high and she received a call from her primary care doctor recommending that she goes to the hospital for evaluation. Otherwise patient denies any confusion or changes in her mental status or behavior. Denies any changes in her bowel or urinary habits. She does report some diffuse bony aches but denies any abdominal pain chest pain trouble breathing. Blood work in the ED did reveal microcytic anemia and mildly elevated calcium. Patient does admit to heavy periods with long history of iron deficiency anemia she is currently on ferrous sulfate. Otherwise denies any GI bleeding Patient does admit to nicotine but denies any other illicit drugs or alcohol. Patient was given 2 L normal saline during her hospitalization. Her calcium improved from 10.7-9.9. TSH was within normal limits. Review of lab work shows PTH of 105, vitamin D 25 of 16.9. Patient is advised that she will likely need a 24 hour urine calcium collection along with possible ultrasound of her parathyroid gland which can be done with her PCP. Her hypercalcemia could also be related to use of hydrochlorothiazide. Patient was seen and examined on 07/29. She reported chronic joint pain but no other complaints. She is advised follow-up with her PCP within 1-2 days of discharge. General: non toxic, no distress, appears at stated age Derm: warm, dry Head: atraumatic, normocephalic, symmetric Eyes: EOMI, no lid lag, anicteric sclera Mouth: no lip lesion, mucus membranes moist Cardiovascular: S1S2 reg, no murmur Lungs: CTA bilateral, no rhonchi, no rales , no accessory muscle use Ext: no gross muscle atrophy, no edema, no contractures Neuro: no focal neuro deficits Psych: Alert, oriented, appropriate affect Discharge diagnosis: Hypercalcemia Elevated PTH Low vitamin D Leukocytosis Hypertension Microcytic anemia with thrombocytosis Patient Condition at Discharge: Stable Plan - Discharge Summary New Discharge Prescriptions: New HYDROcodone/APAP 10-325MG [[place] 10-325] 1 tab PO Q6HR PRN 3 Days #12 tab PRN Reason: Pain Continue Acetaminophen Tab [Tylenol] 650 mg PO Q4H PRN PRN Reason: Pain HYDROcodone/APAP 10-325MG [[place] 10-325] 1 tab PO Q6H PRN 3 Days #12 tab PRN Reason: pain Ibuprofen [Motrin Ib] 400 mg PO Q8H PRN PRN Reason: Pain Discontinued Ibuprofen [Motrin] 600 mg PO Q8HR PRN #30 tab PRN Reason: Pain Cephalexin [Keflex] 500 mg PO Q6HR 7 Days #28 cap Discharge Medication List Acetaminophen Tab [Tylenol] 650 mg PO Q4H PRN 12/28/21 [History] Ibuprofen [Motrin Ib] 400 mg PO Q8H PRN 12/28/21 [History] HYDROcodone/APAP 10-325MG [[place] 10-325] 1 tab PO Q6H PRN 3 Days #12 tab 07/29/22 [Rx] HYDROcodone/APAP 10-325MG [[place] 10-325] 1 tab PO Q6HR PRN 3 Days #12 tab 07/29/22 [Rx] Follow up Appointment(s)/Referral(s): Robe Peterson MD [Primary Care Provider] - 1-2 days Activity/Diet/Wound Care/Special Instructions: Diet: Regular Follow-up with your PCP within 1-2 days of discharge. Take all medications as advised. Discharge Disposition: HOME SELF-CARE
[2022-07-29 09:51] VITALS: BP 135/81; PULSE 81; RESP 16
--- NOTE | 2022-07-29 11:23 | P.NPCON ---
History of Present Illness - Reason for Consult acute renal failure - History of Present Illness reason for consultation: Hypercalcemia History of present illness: Patient is a 42-year-old female seen in renal consultation for hypercalcemia. Patient states her calcium level has been noted to be high over the last 1 month or so. She was taking hydrochlorothiazide which has been discontinued for the last few weeks. denies taking calcium or vitamin D supplementation. She does admit to drinking significant amount of milk but has cut back on that as well. She denies history of malignancy. No vomiting or diarrhea. No chest pain or shortness of breath. No history of renal disease. No hematuria or dysuria. Denies use of nonsteroidals. renal function is at baseline. Creatinine 1 today. Calcium was 10.7 on admission and is 9.9 today. She is receiving IV fluids. she is currently sitting up in bed. She has no active complaints. Vital signs are stable. General: awake. No acute distress. HEENT: Head exam is unremarkable. LUNGS: Breath sounds decreased. HEART: Rate and Rhythm are regular. ABDOMEN: soft, no distention. EXTREMITITES: No edema. Past Medical History Past Medical History: Hypertension Additional Past Medical History / Comment(s): anemia History of Any Multi-Drug Resistant Organisms: None Reported Past Surgical History: Section Past Psychological History: No Psychological Hx Reported Smoking Status: Vaper Past Alcohol Use History: None Reported Past Drug Use History: None Reported - Past Family History Family Family Medical History: Coronary Artery Disease (CAD) Medications and Allergies Home Medications Medication Instructions Recorded Confirmed Type Acetaminophen Tab [Tylenol] 650 mg PO Q4H PRN 12/28/21 12/28/21 History Ibuprofen [Motrin Ib] 400 mg PO Q8H PRN 12/28/21 12/28/21 History HYDROcodone/APAP 10-325MG [[place] 1 tab PO Q6H PRN 3 Days #12 tab 07/29/22 Rx 10-325] HYDROcodone/APAP 10-325MG [[place] 1 tab PO Q6HR PRN 3 Days #12 tab 07/29/22 Rx 10-325] Allergies Allergy/AdvReac Type Severity Reaction Status Date / Time latex Allergy Rash/Hives Verified 06/07/22 16:38 Physical Exam Vitals: Vital Signs Temp Pulse Resp BP Pulse Ox 07/29/22 09:50 81 16 135/81 97 07/29/22 08:00 84 17 151/82 100 07/29/22 05:33 79 14 139/66 99 07/29/22 01:09 78 15 140/67 99 07/28/22 22:12 98.2 F 94 16 156/79 98 Intake and Output 07/28/22 07/29/22 07/29/22 22:59 06:59 14:59 Other: Weight 132.903 kg Results - Lab Results Most recent lab results Calcium 9.9 mg/dL (8.4-10.2) 07/29/22 06:58 Magnesium 1.8 mg/dL (1.6-2.3) 07/29/22 06:58 07/28/22 22:26 07/29/22 06:58 Assessment and Plan Plan: assessment: 1. Hypercalcemia. patient's calcium level since December 2021 has been in the range of 10.8-11. It was 10.7 this admission and is 9.9 today. She is receiving IV fluids. Hydrochlorothiazide was stopped over a month ago. She has cut back on dairy intake. Denies calcium or vitamin D supplementation. PTH is elevated at 121 suggesting primary hyperparathyroidism. Vitamin D 15.4. urine calcium low at 25.5. 2. Benign hypertension. Stable. Plan: Maintain IV fluids. Check parathyroid nuclear scan. Add Sensipar 30 mg once a week. dose will need to be adjusted based on calcium levels. Repeat labs in the morning. Follow-up pending workup for hypercalcemia. Avoid calcium/vit d supplementaton. Also has cut back on dairy. patient should also follow up with endocrinology upon discharge. Discussed with primary team. Thank you for the consultation. I will continue to follow the patient with you during her hospital stay.
[2022-07-30 11:48] LABS: Free Kappa Lt Chain Qnt, Serum 2.01 mg/dL (0.33-1.94); Free Lambda Lt Chain Qnt, Seru 1.59 mg/dL (0.57-2.63)
[2022-07-31 11:20] LABS: Protein, Total 6.1 g/dL (6.2-8.2)
[2022-08-05] MEDS ORDERED: CINACALCET 30 MG TAB PO SCH (09:00)
== END 2022-07-29 09:48 | disposition home or self-care (01) ==
LOC: EC 21:21 → 6NMEDSUR 07-29 00:43
PROVIDERS: ADMIT Internal Medicine; ATTEND Internal Medicine
DX: E83.52 Hypercalcemia (principal); R94.6 Abnormal results of thyroid function studies; D50.9 Iron deficiency anemia, unspecified; D75.839 Thrombocytosis, unspecified; D72.829 Elevated white blood cell count, unspecified; I10 Essential (primary) hypertension; M79.7 Fibromyalgia; N92.0 Excessive and frequent menstruation with regular cycle; G89.29 Other chronic pain; M25.50 Pain in unspecified joint; F17.290 Nicotine dependence, other tobacco product, uncomplicated; Z79.899 Other long term (current) drug therapy; Z91.040 Latex allergy status; Z98.891 History of uterine scar from previous surgery; Z82.49 Family history of ischemic heart disease and other diseases of the circulatory system
CPT/HCPCS: 96376; 96361; 96374; 96375; 99285; 36415; 82652; 82310; 80053; 80048; 84443; 82330; 82150; 82164; 83690; 83735; 85025; 84165; 82306; 83970; 86334; 83883; G0378; J2270; J2405; J1170

== ENCOUNTER → 2022-08-09 | Outpatient (CLI) | payer OTHER ==
--- NOTE | 2022-08-09 15:57 | P.SLEEP ---
History of Present Illness DATE: 08/09/2022 CONSULTATION/NEW PATIENT EVALUATION HISTORY OF PRESENT ILLNESS/SLEEP-WAKE EVALUATION: 42 year old lady had been evaluated in the sleep center for possible obstructive sleep apnea hypopnea syndrome. SLEEP SCHEDULE: Usually sleep schedule on weekdays from 12 AM until 7 AM, during days off from 2 AM until 9 AM. FALLING ASLEEP: No problems with falling asleep, although patient has TV set and bedroom. DURING SLEEP: During the sleep patient to staying on the side position, snores with the witnessed episodes of sleep apnea. Patient wakes up from sleep up to 4 times with 2 episodes of nocturia. Positive history of kicking and movements during the night No history of hypnogogical hallucinations, sleep paralysis, or cataplexy. DURING THE DAY/WAKE STATE: In the morning patient wake up tired, has problems with concentration, irritability, anxiety, sexual dysfunction. [place] sleepiness scale is significantly increased to 14. Patient to take naps around the 1 PM. PAST MEDICAL HISTORY: Hypertension, acid reflux, iron deficiency anemia, status post Covid19 with episodes of shortness of breath improving with bronchodilatation, hypercalcemia. PAST SURGICAL HISTORY: Tonsillectomy, . MEDICATIONS: Amlodipine 5 mg once a day, omeprazole 20 mg once a day, pro-air, Ferrous sulfate. SOCIAL HISTORY: Ex-smoker, quit 2 years ago , alcohol consumption occasional. FAMILY HISTORY: Hypertension, heart problems, epilepsy, stroke, diabetes, restless legs. REVIEW OF SYSTEMS: Snoring, multiple awakenings from sleep, sleepiness during the day, leg movements at night. No fevers. No double vision. No recent chest pain. No shortness of breath. No abdominal pain. No bleeding episodes. No blood in urine. No seizure episodes. PHYSICAL EXAMINATION: GENERAL: A pleasant patient without any distress. VITAL SIGNS: BP 123/85 , HR 91 , RR 18 , weight to 53.0 pounds, height 5 foot 1- 3/4 inches, body mass index 46.7, temperature 97.8, oxygen saturation at room air 98% . HEENT: PERRLA, EOMI. Evaluation of oropharynx showed tongue protrudes midline, low position of soft palate Mallampati 4. NECK: Supple. No JVD. Thyroid is not palpable. 18 inches in circumference. LUNGS: Clear to percussion and to auscultation. Good air exchange. No wheezing or rhonchi. HEART: S1, S2 regular. No murmurs, gallops or rubs. ABDOMEN: Soft and nontender. Bowel sounds are present. No organomegaly appreciated. Obese EXTREMITIES: No clubbing or cyanosis. [employer]: Awake, alert, and oriented x3. Cranial nerves 2 to 7 intact. There is no fasciculation or atrophy noted. No focal deficits observed. ASSESSMENT: 1. Snoring, witnessed episodes of sleep apneas, extremely low position of soft palate Mallampati 4, wide neck 18 inches in circumference, sleepiness [place] Sleepiness Scale is 14. Obstructive sleep apnea hypopnea syndrome. 2. Hypertension. 3 acid reflux. 4. Iron deficiency anemia. 5 hypercalcemia. 6. Status post Covid 19 with episodes of wheezing. 7. Obesity body mass index 46.7. 8. Status post tonsillectomy. 9. Status post . 10. Significant amount of movements during the sleep possibly periodic limb movements. PLAN: 1. Polysomnography for evaluation of patient's breathing during sleep and to check for possible periodic limb movements. 2. CPAP/BiPAP titration if sleep study confirms obstructive sleep apnea- hypopnea syndrome. 3. Preferable position during sleep on the side. 4. No driving if patient feels any sleepiness. Patient is aware of civil and criminal liability for unsafe driving. 5. Sleep hygiene with regular sleep time for at least 7.5-8 hours. 6. Watching weight. Thank you very much for referring this patient for consultation. Sincerely, Gómez Tolentino MD, PhD, FAASM. Diplomat of [place], Sleep Medicine Board by [employer] [employer] [facility] [place] Past Medical History Past Medical History: Hypertension Additional Past Medical History / Comment(s): anemia History of Any Multi-Drug Resistant Organisms: None Reported Past Surgical History: Section Past Psychological History: No Psychological Hx Reported Smoking Status: Vaper Past Alcohol Use History: None Reported Past Drug Use History: None Reported - Past Family History Family Family Medical History: Coronary Artery Disease (CAD) Medications and Allergies Home Medications Medication Instructions Recorded Confirmed Type Acetaminophen Tab [Tylenol] 650 mg PO Q4H PRN 12/28/21 12/28/21 History Ibuprofen [Motrin Ib] 400 mg PO Q8H PRN 12/28/21 12/28/21 History Cinacalcet [Sensipar] 30 mg PO WEEKLY #4 tablet 07/29/22 Rx HYDROcodone/APAP 10-325MG [[place] 1 tab PO Q6H PRN 3 Days #12 tab 07/29/22 Rx 10-325] HYDROcodone/APAP 10-325MG [[place] 1 tab PO Q6HR PRN 3 Days #12 tab 07/29/22 Rx 10-325] Allergies Allergy/AdvReac Type Severity Reaction Status Date / Time latex Allergy Rash/Hives Verified 06/07/22 16:38 Sleep Note - Sleep Note Sleep Note: Temperature: Pulse Rate: Respiratory Rate: Blood Pressure: SpO2: Height: Weight: BMI: Neck Circumference:
== END ==
LOC: SLEEP 14:58
PROVIDERS: ATTEND Internal Medicine
DX: G47.33 Obstructive sleep apnea (adult) (pediatric) (principal); F41.9 Anxiety disorder, unspecified; I10 Essential (primary) hypertension; K21.9 Gastro-esophageal reflux disease without esophagitis; E66.9 Obesity, unspecified; Z68.42 Body mass index [BMI] 45.0-49.9, adult; D50.9 Iron deficiency anemia, unspecified; E83.52 Hypercalcemia; Z86.16 Personal history of COVID-19; Z90.89 Acquired absence of other organs; Z91.040 Latex allergy status; Z87.891 Personal history of nicotine dependence
CPT/HCPCS: 99211

== ENCOUNTER → 2022-08-20 | Outpatient (CLI) | payer OTHER ==
--- NOTE | 2022-08-21 09:12 | NM ---
EXAMINATION TYPE: NM parathyroid w/spect DATE OF EXAM: 08/20/2022 COMPARISON: NONE HISTORY: History of hyperparathyroidism TECHNIQUE: Following administration of 26.7 mCi Tc99m Sestamibi. Anterior projection images of the neck and ches t were obtained 10 minutes and 3 hours post injection. SPECT images of the neck and chest were obtai michael and reconstructed in three axes. FINDINGS: Thyroid tracer washout: Delayed images demonstrate near-complete tracer washout from the thyroid. Parathyroid uptake: None. The two-hour delayed images do not demonstrate any focal abnormal persisten t uptake in the region of the parathyroid glands to suggest parathyroid adenoma. Normal uptake: There is physiological tracer uptake in the myocardium, liver, salivary glands, and th yroid gland. IMPRESSION: Normal parathyroid imaging study. No evidence for mediastinal uptake to suggest mediastinal parathyro id adenoma
--- NOTE | 2022-08-21 14:44 | MM ---
Reason for Exam: Screening (asymptomatic). Patient History: Menarche at age 11. First Full-Term at age 19. Patient has history of breast feeding. Last menstrual period: 07/26/2022 Risk Values: Layne 5 year model risk: 0.5%. NCI Lifetime model risk: 7.9%. Tissue Density: There are scattered fibroglandular densities. Findings: Analyzed By CAD. There is no suspicious group of microcalcifications or new suspicious mass in either breast. Overall Assessment: Benign, BI-RAD 2 Management: Screening Mammogram of both breasts in 1 year. A clinical breast exam by your physician is recommended on an annual basis and results should be correlated with mammographic findings. Electronically signed and approved by: Rich Bowser M.D. Radiologis
== END | disposition home or self-care (01) ==
LOC: RADMAMWWP 09:40
PROVIDERS: ATTEND Internal Medicine
DX: E21.3 Hyperparathyroidism, unspecified (principal); Z12.31 Encounter for screening mammogram for malignant neoplasm of breast
CPT/HCPCS: 77067; 77063; 78071; A9500